=== PATIENT | female | born 1985 | race Hispanic/Latino ===

== ENCOUNTER → 2018-12-21 | Outpatient (CLI) | payer OTHER ==
--- NOTE | 2018-12-22 18:57 | SLEEPCENT ---
DATE OF PROCEDURE: 12/21/2018 ORDERED BY: Ashley Reinoso Nocturnal polysomnography was performed for evaluation of sleep physiology in this patient with a history of excessive somnolence and nonrestorative sleep. 7 hours and 46 minutes of data were reviewed. There were 432 minutes of sleep identified. Sleep latency was mildly prolonged at 12.5 minutes. REM latency was normal at 52.5 minutes. Sleep architecture was good with four REM cycles. Overall sleep efficiency 93.9%. The electrocardiogram showed a sinus rhythm with an average heart rate of 70 beats per minute. Rate ranged 60-95. EEG showed mild coarsening in background. No focal events. Normal waveforms for awake and sleep. There was only 1 respiratory event identified of 10 seconds in duration or greater for an apnea-hypopnea index of 0.1 well within normal limits. Some snoring was noted. Respiratory related arousals occurred only 0.3 times per hour. There was some activity in the limb leads but only one train of events. Limb movement arousal index was borderline at 6.5 and oxygen saturations remained 90% throughout the study. IMPRESSION: Normal nocturnal polysomnography with snoring.
== END ==
LOC: M SLEEP 20:00
PROVIDERS: ATTEND Nurse Practitioner Family
DX: R06.83 Snoring (principal)

== ENCOUNTER 2019-12-26 19:51 | Emergency (ER) | payer OTHER ==
[~2019-12-26] VITALS: Ht 172.7 cm; Wt 77.3 kg
[2019-12-26 19:52] VITALS: BP 113/73
--- NOTE | 2019-12-26 22:16 | REP ---
Clinical: Trauma. Technique: AP and lateral views of the sacrum and coccyx (three total views) Findings: No acute fracture or dislocation. Sacroiliac joints are symmetric and normal. Impression: No acute fracture or dislocation. Electronically Signed by Frank Prieto MD 12/26/2019 10:08 P
== END 2019-12-26 20:58 | disposition home or self-care (01) ==
LOC: M ED 19:51
DX: S33.6XXA Sprain of sacroiliac joint, initial encounter (principal); F17.200 Nicotine dependence, unspecified, uncomplicated; F41.9 Anxiety disorder, unspecified; W10.9XXA Fall (on) (from) unspecified stairs and steps, initial encounter; Y92.9 Unspecified place or not applicable; Y99.8 Other external cause status; Y93.9 Activity, unspecified

== ENCOUNTER 2020-01-04 00:17 | Emergency (ER) | payer OTHER ==
[~2020-01-04] VITALS: Ht 172.7 cm; Wt 81.8 kg
[2020-01-04] MEDS ORDERED: hydrOXYzine 25 MG TAB PO STA (01:17)
[2020-01-04 02:06] VITALS: BP 110/72
== END 2020-01-04 02:21 | disposition home or self-care (01) ==
LOC: M ED 00:17
DX: F41.9 Anxiety disorder, unspecified (principal)

== ENCOUNTER → 2021-08-31 | Outpatient (CLI) | payer OTHER | LOC: M WHC 10:30 | PROVIDERS: ATTEND Physician Assistant Medical | DX: N63.0 Unspecified lump in unspecified breast (principal) ==